=== PATIENT | female | born 1965 | race Caucasian/White ===

== ENCOUNTER 2019-07-14 14:17 | Emergency (ER) | payer BC ==
[2019-07-14] MEDS ORDERED: NS 0.9% 1000 ML** 1,000 ML IV ONE (16:26)
--- NOTE | 2019-07-14 16:27 | ED ---
Abdominal Pain/Female - HPI Summary HPI Summary: Patient complains of right-sided abdominal pain 2 weeks. Patient states pain is constant, sharp, not worsened with eating. Pain worse over the past 2 days. Sent by PCP to the ED to rule out appendectomy. Denies fever, cough, sore throat, CP, N/3/D, change in urine, change in BM, vaginal symptoms. History is HTN. Abdominal surgical history is cholecystectomy. - History of Current Complaint Chief Complaint: EDAbdPain Stated Complaint: ABD PAIN PER PT Time Seen by Provider: 07/14/19 16:17 Hx Obtained From: Patient Onset/Duration: Gradual Onset, Lasting Weeks Timing: Constant Severity Initially: Moderate Severity Currently: Moderate Pain Intensity: 7 Pain Scale Used: 0-10 Numeric Location: Discrete At: RUQ, Discrete At: RLQ Radiates: No Character: Sharp Aggravating Factor(s): Nothing Alleviating Factor(s): Nothing Associated Signs and Symptoms: Positive: Negative Allergies/Adverse Reactions: Allergies Allergy/AdvReac Type Severity Reaction Status Date / Time Penicillins Allergy Hives Verified 07/14/19 14:30 Sulfa (Sulfonamide Allergy Hives Verified 07/14/19 14:30 Antibiotics) Home Medications: Home Medications Metoprolol Succinate XL TAB* [Toprol XL TAB*] 100 mg PO DAILY 07/14/19 [History Confirmed 07/14/19] PMH/Surg Hx/FS Hx/Imm Hx Endocrine/Hematology History: Denies: Hx Anticoagulant Therapy Cardiovascular History: Denies: Hx Pacemaker/ICD History: Denies: Hx Dialysis Sensory History: Denies: Hx Eye Prosthesis Opthamlomology History: Denies: Hx Legally Blind EENT History: Denies: Hx Deafness Neurological History: Denies: Hx Dementia - Cancer History Hx Chemotherapy: No Hx Radiation Therapy: No - Immunization History Date of Influenza Vaccine: 2019 Immunizations Up to Date: Yes Infectious Disease History: No Infectious Disease History: Denies: Traveled Outside the [place] in Last 30 Days - Family History Known Family History: Positive: Non-Contributory - Social History Alcohol Use: Occasionally Substance Use Type: Reports: None Smoking Status (MU): Never Smoked Tobacco Review of Systems Constitutional: Negative Eyes: Negative ENT: Negative Cardiovascular: Negative Respiratory: Negative Positive: Abdominal Pain Genitourinary: Negative Musculoskeletal: Negative Skin: Negative Neurological/Mental Status: Negative Psychological: Normal All Other Systems Reviewed And Are Negative: Yes Physical Exam - Summary Physical Exam Summary: Lower quadrant and right upper quadrant tenderness, abdominal exam otherwise unremarkable. Triage Information Reviewed: Yes Vital Signs On Initial Exam: Initial Vitals Temp Pulse Resp BP Pulse Ox 97.1 F 79 16 168/93 94 07/14/19 14:27 07/14/19 14:27 07/14/19 14:27 07/14/19 14:27 07/14/19 14:27 Vital Signs Reviewed: Yes Appearance: Positive: Well-Appearing Skin: Positive: Warm Head/Face: Positive: Normal Head/Face Inspection Eyes: Positive: Normal Neck: Positive: Supple Respiratory/Lung Sounds: Positive: Clear to Auscultation Cardiovascular: Positive: Normal Abdomen Description: Positive: Other: Musculoskeletal: Positive: Normal Neurological: Positive: Normal Psychiatric: Positive: Normal AVPU Assessment: Alert - [place] Coma Scale Best Eye Response: 4 - Spontaneous Best Motor Response: 6 - Obeys Commands Best Verbal Response: 5 - Oriented Coma Scale Total: 15 Procedures - Sedation Patient Received Moderate/Deep Sedation with Procedure: No Diagnostics - Vital Signs Vital Signs Temp Pulse Resp BP Pulse Ox 07/14/19 16:20 72 153/79 98 07/14/19 16:17 78 99 07/14/19 14:27 97.1 F 79 16 168/93 94 - Laboratory Result Diagrams: 07/14/19 16:46 07/14/19 16:46 Lab Statement: Any lab studies that have been ordered have been reviewed, and results considered in the medical decision making process. Abdominal Pain Fem Course/Dx - Course Course Of Treatment: Patient complains of right-sided abdominal pain 2 weeks. Patient states pain is constant, sharp, not worsened with eating. Pain worse over the past 2 days. Sent by PCP to the ED to rule out appendectomy. Denies fever, cough, sore throat, CP, N/3/D, change in urine, change in BM, vaginal symptoms. History is HTN. Abdominal surgical history is cholecystectomy. Vital signs within normal limits. WBC 12.3. CRP 16. Labs otherwise unremarkable. Urine negative. CT abdomen and pelvis negative. - Diagnoses Provider Diagnoses: Right sided abdominal pain Discharge ED - Sign-Out/Discharge Documenting (check all that apply): Patient Departure - Discharge Plan Condition: Stable Disposition: HOME Patient Education Materials: Acute Abdominal Pain (ED) Referrals: Elise Villegas MD [Primary Care Provider] - Annalee Juan MD [Medical Doctor] - Additional Instructions: If symptoms persist follow-up with GI Doctor Yessica for further evaluation. Alternate ibuprofen 600 mg with Tylenol 650 mg every 3 hours for abdominal pain if needed. Return to the ED for any new or worsening symptoms. - Billing Disposition and Condition Condition: STABLE Disposition: Home
[2019-07-14 16:55] LABS: ABS Basophils 0.1 10^3/ul (0-0.2); ABS Eosinophils 0.2 10^3/ul (0-0.6); ABS Lymphocytes 3.2 10^3/ul (1.0-4.8); ABS Neutrophils 7.9 10^3/ul (1.5-7.7); Eosinophil % 1.6 %; Hematocrit 38 % (35-47); Hemoglobin 13.1 g/dL (12.0-16.0); Lymphocyte % 25.6 %; Mean Corpuscular HGB Conc 35 g/dL (31-36); Mean Corpuscular Hemoglobin 29 pg (27-31); Mean Corpuscular Volume 84 fL (80-97); Mean Platelet Volume 8.3 fL (7.4-10.4); Nucleated Red Blood Cells % 0.1; Platelet Count 322 10^3/uL (150-450); Red Blood Count 4.48 10^6 /uL (3.70-4.87); Red Cell Distribution Width 15 % (10-15); White Blood Count 12.3 10^3/uL (3.5-10.8)
[2019-07-14 17:14] LABS: Albumin 4.7 g/dL (3.2-5.2); Albumin/Globulin Ratio 1.1 (1-3); BUN/Creatinine Ratio 12.9 (8-20); C Reactive Protein 16.65 mg/L (<8.01); Calcium 10.1 mg/dL (8.6-10.3); EGFR Non-African American 62.8 (>60); Globulin 4.3 g/dL (2-4); Potassium 3.8 mmol/L (3.5-5.0); Total Bilirubin 0.4 mg/dL (0.2-1.0)
[2019-07-14 19:04] LABS: Urine Appearance Clear; Urine Bilirubin Negative (Negative); Urine Blood Negative (Negative); Urine Color Straw; Urine Glucose Negative (Negative); Urine Ketones Negative (Negative); Urine Nitrite Negative (Negative); Urine Protein Negative (Negative); Urine Specific Gravity 1.005 (1.010-1.030); Urine Urobilinogen Negative (Negative)
[2019-07-14] MEDS ORDERED: Iohexol 300* (CONTRAST) 10 ML SDV IV ONE (19:33)
[2019-07-14 21:40] VITALS: BP 169/84
== END 2019-07-14 21:39 | disposition home or self-care (01) ==
LOC: ED 14:17
DX: R10.11 Right upper quadrant pain (principal); R10.31 Right lower quadrant pain; K76.0 Fatty (change of) liver, not elsewhere classified; I10 Essential (primary) hypertension; Z79.899 Other long term (current) drug therapy; Z90.49 Acquired absence of other specified parts of digestive tract; Z88.0 Allergy status to penicillin; Z88.2 Allergy status to sulfonamides
CPT/HCPCS: 36415; 74177; 80053; 81003; 83605; 83690; 85025; 86140; 96360; 99283; Q9967